=== PATIENT | female | born 1955 | race Caucasian/White ===

== ENCOUNTER 2017-12-10 13:03 | Outpatient (CLI) | payer OTHER | END 2017-12-10 13:13 | disposition home or self-care (01) | LOC: RAD 13:03 | DX: R31.9 Hematuria, unspecified (principal); I10 Essential (primary) hypertension; R73.01 Impaired fasting glucose; E78.00 Pure hypercholesterolemia, unspecified; R10.11 Right upper quadrant pain; M54.30 Sciatica, unspecified side; M54.6 Pain in thoracic spine ==

== ENCOUNTER 2018-07-05 18:07 | Emergency (ER) | payer OTHER ==
[~2018-07-05] VITALS: Ht 162.6 cm; Wt 59.0 kg
[2018-07-05] MEDS ORDERED: LIPITOR20 MG (18:27)
[2018-07-05] MEDS ORDERED: ESCITALOPRAM OX10 MG (18:27)
[2018-07-05] MEDS ORDERED: LOSARTAN-HCTZ1 EACH (18:27)
== END 2018-07-05 20:20 | disposition home or self-care (01) ==
LOC: ER 18:07
DX: R42 Dizziness and giddiness (principal); F06.4 Anxiety disorder due to known physiological condition

== ENCOUNTER → 2018-07-30 | Outpatient (CLI) | payer OTHER ==
[~2018-07-30] MED LIST: ESCITALOPRAM OX10 MG; LIPITOR20 MG; LOSARTAN-HCTZ1 EACH
== END | disposition home or self-care (01) ==
LOC: TOM 09:00
DX: R31.29 Other microscopic hematuria (principal)

== ENCOUNTER 2018-09-14 08:12 | Outpatient (CLI) | payer OTHER | END 2018-09-14 15:19 | disposition home or self-care (01) | LOC: SONOGRAMA 08:12 | DX: R10.31 Right lower quadrant pain (principal); R10.32 Left lower quadrant pain ==

== ENCOUNTER 2020-02-09 09:41 | Emergency (ER) | payer OTHER ==
[~2020-02-09] VITALS: Ht 162.6 cm; Wt 58.1 kg
== END 2020-02-09 13:21 | disposition home or self-care (01) ==
LOC: ER 09:41
DX: R06.02 Shortness of breath (principal); F06.4 Anxiety disorder due to known physiological condition

== ENCOUNTER 2021-01-10 12:18 | Outpatient (CLI) | payer OTHER | END 2021-01-10 12:27 | disposition home or self-care (01) | LOC: MAMO-SONO 12:18 | PROVIDERS: ATTEND Family Medicine | DX: Z12.31 Encounter for screening mammogram for malignant neoplasm of breast (principal); N64.4 Mastodynia; N64.59 Other signs and symptoms in breast ==

== ENCOUNTER 2021-01-10 14:33 | Outpatient (CLI) | payer OTHER | END 2021-01-10 14:38 | disposition home or self-care (01) | LOC: NUCLEAR 14:33 | PROVIDERS: ATTEND Family Medicine | DX: M81.0 Age-related osteoporosis without current pathological fracture (principal) ==

== ENCOUNTER 2021-03-15 10:22 | Outpatient (CLI) | payer OTHER | END 2021-03-15 10:27 | disposition home or self-care (01) | LOC: MRI 10:22 | PROVIDERS: ATTEND Family Medicine | DX: M25.512 Pain in left shoulder (principal) | CPT/HCPCS: 73218 ==

== ENCOUNTER 2021-04-09 11:46 | Outpatient (CLI) | payer OTHER | END 2021-04-09 11:55 | disposition home or self-care (01) | LOC: MRI 11:46 | PROVIDERS: ATTEND Psychiatry & Neurology Pain Medicine | DX: R41.3 Other amnesia (principal); G31.84 Mild cognitive impairment of uncertain or unknown etiology; F44.9 Dissociative and conversion disorder, unspecified; F32.9 Major depressive disorder, single episode, unspecified; Z81.8 Family history of other mental and behavioral disorders | CPT/HCPCS: 70553 ==

== ENCOUNTER 2021-11-30 07:39 | Outpatient (CLI) | payer OTHER | END 2021-11-30 07:41 | disposition home or self-care (01) | LOC: SONOGRAMA 07:39 | PROVIDERS: ATTEND Family Medicine | DX: R10.11 Right upper quadrant pain (principal) ==

== ENCOUNTER → 2021-12-14 11:09 | Outpatient (CLI) | payer OTHER | END | disposition home or self-care (01) | LOC: LAB 11:09 | PROVIDERS: ATTEND Radiology Diagnostic Radiology | DX: R10.9 Unspecified abdominal pain (principal) ==

== ENCOUNTER 2021-12-18 07:59 | Outpatient (CLI) | payer OTHER | END 2021-12-18 08:07 | disposition home or self-care (01) | LOC: TOM 07:59 | PROVIDERS: ATTEND Internal Medicine Gastroenterology | DX: R10.9 Unspecified abdominal pain (principal); Z90.49 Acquired absence of other specified parts of digestive tract ==

== ENCOUNTER 2022-01-10 13:02 | Outpatient (CLI) | payer OTHER | END 2022-01-10 13:12 | disposition home or self-care (01) | LOC: MAMO-SONO 13:02 | PROVIDERS: ATTEND Family Medicine | DX: N64.4 Mastodynia (principal) ==

== ENCOUNTER 2022-12-20 14:35 | Outpatient (CLI) | payer OTHER | END 2022-12-20 14:43 | disposition home or self-care (01) | LOC: RAD 14:35 | PROVIDERS: ATTEND General Practice | DX: M54.2 Cervicalgia (principal); M54.59 Other low back pain; G62.9 Polyneuropathy, unspecified ==

== ENCOUNTER 2023-01-15 08:47 | Outpatient (CLI) | payer OTHER | END 2023-01-15 09:46 | disposition home or self-care (01) | LOC: MAMO-SONO 08:47 | PROVIDERS: ATTEND Family Medicine | DX: N64.4 Mastodynia (principal) ==

== ENCOUNTER 2023-01-15 10:00 | Outpatient (CLI) | payer OTHER | END 2023-01-15 10:11 | disposition home or self-care (01) | LOC: NUCLEAR 10:00 | PROVIDERS: ATTEND Family Medicine | DX: M81.0 Age-related osteoporosis without current pathological fracture (principal) ==

== ENCOUNTER 2023-07-10 18:30 | Emergency (ER) | payer OTHER ==
[~2023-07-10] VITALS: Ht 162.6 cm; Wt 52.2 kg
== END 2023-07-10 21:08 | disposition home or self-care (01) ==
LOC: ER 18:30
DX: M94.0 Chondrocostal junction syndrome [Tietze] (principal); F41.9 Anxiety disorder, unspecified

== ENCOUNTER 2024-06-17 14:42 | Outpatient (CLI) | payer OTHER | END 2024-06-17 14:44 | disposition home or self-care (01) | LOC: RAD 14:42 | DX: M81.0 Age-related osteoporosis without current pathological fracture (principal) ==